=== PATIENT | male | born 1995 | race Caucasian/White ===

== ENCOUNTER 2016-10-24 15:18 | Emergency (ER) | payer BC ==
[~2016-10-24] VITALS: Ht 185.4 cm; Wt 77.0 kg
[2016-10-24 15:24] VITALS: BP 133/74
[2016-10-24 15:42] LABS: HEMOGLOBIN 15.9 g/dL (13.7-18.0); WHITE BLOOD COUNT 8.2 x10^3/uL (4.5-13.2)
[2016-10-24 15:54] LABS: BLOOD UREA NITROGEN 12 mg/dL (7-18)
[2016-10-24 15:56] LABS: ACETAMINOPHEN < 2 mcg/mL (10-30)
[2016-10-24 15:57] LABS: DAU SCREEN DISCLAIMER
== END 2016-10-24 17:14 | disposition home or self-care (01) ==
LOC: ED 15:46
DX: S51.812A Laceration without foreign body of left forearm, initial encounter (principal); F41.9 Anxiety disorder, unspecified; Y93.89 Activity, other specified; Y99.8 Other external cause status; Y92.89 Other specified places as the place of occurrence of the external cause
CPT/HCPCS: 36415; 80048; 80307; 80329; 82040; 85025; 99284; G0480